=== PATIENT | male | born 1975 | race Caucasian/White ===

== ENCOUNTER 2024-11-30 15:49 | Emergency (ER) | payer BC ==
[~2024-11-30] VITALS: Ht 177.8 cm; Wt 105.2 kg
[2024-11-30 15:55] VITALS: BP 175/100
[2024-11-30] MEDS ORDERED: DEPO-TESTO200 MG/18 IM (16:33)
[2024-11-30] MEDS ORDERED: DEXTROAMPHETAMI10 M5 PO (16:33)
[2024-11-30] MEDS ORDERED: Lisinopril-Hct1 EAC4 (16:34)
[2024-12-01] MEDS ORDERED: OXAYDO5 M1 PO (15:50)
== END 2024-11-30 18:16 | disposition home or self-care (01) ==
LOC: ER 15:49
DX: S46.211A Strain of muscle, fascia and tendon of other parts of biceps, right arm, initial encounter (principal); W16.112A Fall into natural body of water striking water surface causing other injury, initial encounter; I10 Essential (primary) hypertension; Z79.899 Other long term (current) drug therapy
CPT/HCPCS: 73060; 76882; 99284-25; A9270

== ENCOUNTER 2024-12-11 07:53 | Day surgery (SDC) | payer OTHER, BC ==
[~2024-12-11] VITALS: Ht 177.8 cm; Wt 108.8 kg
[~2024-12-11 07:53] MED LIST: DEPO-TESTO200 MG/18 IM; DEXTROAMPHETAMI10 M5 PO; Lisinopril-Hct1 EAC4; OXAYDO5 M1 PO
[2024-12-11] MEDS ORDERED: FentaNYL Citrate 50 MCG/ML 2 ML Injection ONE ×2 (08:29→10:47)
[2024-12-11] MEDS ORDERED: Midazolam HCl 1MG / ML 2ML Vial ONE (08:30)
[2024-12-11] MEDS ORDERED: CeFAZolin Sodium 2,000 MG VIAL ONE (08:34)
[2024-12-11] MEDS ORDERED: DEXTROAMPHETAMI PO (08:42)
[2024-12-11] MEDS ORDERED: CYCL10 PO (08:42)
[2024-12-11] MEDS ORDERED: Bupivacaine 0.5% HCl 5 MG/ML 30MLVIAL ONE (08:55)
--- NOTE | 2024-12-11 09:32 | NUR ---
12/11/24 0932 JosealBritni conner 0915: START OF BLOCK PROCEDURE AND TIMEOUT 0921: END OF BLOCK PROCEDURE BY DR REHMAN. PT ON 2 LPM VIA NC. PT TOLERATED AXILLARY BLOCK WELL.
[2024-12-11] MEDS ORDERED: Labetalol HCL 5 MG/ML 4ML Injection (Single Dose) ONE (09:48)
[2024-12-11] MEDS ORDERED: Ketorolac Tromethamine 30mg Vial ONE (10:46)
--- NOTE | 2024-12-11 10:51 | NUR ---
12/11/24 1051 Gisele Machuca REPORT RECEIVED FROM DON AND RN. PT ASLEEP WITH OA THAT WAS REMOVED UPON ARRIVAL TO PACU. PT PLACED ON 3L BNC. RIGHT FINGERS PINK, WARM, MOIST. CAP REFILL <3 SECONDS ON RIGHT HAND
--- NOTE | 2024-12-11 11:17 | NUR ---
12/11/24 1117 Gisele Machuca brought to bedside
[2024-12-11] MEDS ORDERED: HYDROcodone 5-APAP 325 TAB ONE (11:24)
[2024-12-11] MEDS ORDERED: HYDROmorphone HCl/Pf 1MG SYR ONE (11:25)
[2024-12-11] MEDS ORDERED: Ondansetron HCl 2 MG / ML 2ML Vial ONE ×2 (12:04→13:30)
[2024-12-11 12:20] VITALS: BP 134/79
[2024-12-11] MEDS ORDERED: Dexamethasone Sod Phos 10 MG/ML 1ML VIAL ONE (13:30)
== END 2024-12-11 12:34 | disposition home or self-care (01) ==
LOC: ORSCSDS 07:53
PROVIDERS: Orthopaedic Surgery
PROC: 0LM30ZZ Reattachment of Right Upper Arm Tendon, Open Approach (ICD-10-PCS; principal; 2024-12-11 09:15)
DX: S46.211A Strain of muscle, fascia and tendon of other parts of biceps, right arm, initial encounter (principal); W01.0XXA Fall on same level from slipping, tripping and stumbling without subsequent striking against object, initial encounter; I10 Essential (primary) hypertension; Z79.899 Other long term (current) drug therapy
CPT/HCPCS: A9270; C1713; J0690; J1100; J1171; J1885; J2250; J2405; J2704; J3010; J7120